=== PATIENT | female | born 1960 | race Caucasian/White ===

== ENCOUNTER 2023-10-19 14:40 | Outpatient (CLI) | payer BC ==
[~2023-10-19] VITALS: Ht 162.6 cm; Wt 110.0 kg
[2023-10-19 15:29] VITALS: BP 139/68; PULSE 52; TEMP 98
[2023-10-19] MEDS ORDERED: DECADRON 4MG TAB4 MG PO (15:40)
[2023-10-19] MEDS ORDERED: FULPHILA SQ (15:40)
[2023-10-19] MEDS ORDERED: AVALIDE 12.5 MG1 TA1 PO (15:40)
[2023-10-19] MEDS ORDERED: OXY IR5 MG PO (15:41)
[2023-10-19] MEDS ORDERED: ZOFRAN ODT8 MG PO (15:41)
[2023-10-19] MEDS ORDERED: COMPAZINE 110 MG/TAB PO (15:42)
[2023-10-19] MEDS ORDERED: DOCETAXEL IV (15:43)
[2023-10-19] MEDS ORDERED: NOVAPLUS CAR10 MG/ML IV (15:43)
[2023-10-19] MEDS ORDERED: ALOXII IV (15:44)
[2023-10-19] MEDS ORDERED: EMEND 150M150 MG/VIA IV (15:44)
--- NOTE | 2023-10-19 16:00 | NUR ---
Pt tolerated injection without issue. She remained in dept for monitoring following administration. No s/s of reaction or complaints from pt. She is escorted out to waiting room to meet .
== END 2023-10-19 16:00 | disposition home or self-care (01) ==
LOC: EUO 14:40
DX: C50.411 Malignant neoplasm of upper-outer quadrant of right female breast (principal)
CPT/HCPCS: Q5108-JG

== ENCOUNTER 2023-11-09 14:48 | Outpatient (CLI) | payer BC ==
[~2023-11-09] VITALS: Ht 162.6 cm; Wt 109.4 kg
[~2023-11-09 14:48] MED LIST: ALOXII IV; AVALIDE 12.5 MG1 TA1 PO; COMPAZINE 110 MG/TAB PO; DECADRON 4MG TAB4 MG PO; DOCETAXEL IV; EMEND 150M150 MG/VIA IV; FULPHILA SQ; NOVAPLUS CAR10 MG/ML IV; OXY IR5 MG PO; ZOFRAN ODT8 MG PO
[2023-11-09] MEDS ORDERED: CLARITIN 1010 MG/TAB PO (14:57)
[2023-11-09 15:29] VITALS: BP 139/75; PULSE 68; TEMP 98.1
== END 2023-11-09 15:30 | disposition home or self-care (01) ==
LOC: EUO 14:48
DX: Z51.11 Encounter for antineoplastic chemotherapy (principal); C50.411 Malignant neoplasm of upper-outer quadrant of right female breast
CPT/HCPCS: Q5108-JG

== ENCOUNTER 2024-01-11 14:58 | Outpatient (CLI) | payer BC ==
[~2024-01-11] VITALS: Ht 162.6 cm; Wt 110.6 kg
[~2024-01-11 14:58] MED LIST changes: +CLARITIN 1010 MG/TAB PO; +TYLENOL 500MG500 MG PO
[2024-01-11 15:33] VITALS: BP 149/72; PULSE 76; TEMP 97.1
== END 2024-01-11 15:34 ==
LOC: EUO 14:58
DX: C50.411 Malignant neoplasm of upper-outer quadrant of right female breast (principal)
CPT/HCPCS: Q5108-JG